=== PATIENT | male | born 1990 | race Caucasian/White ===

== ENCOUNTER 2018-08-06 18:57 | Emergency (ER) | payer SELFPAY ==
[2018-08-06 19:17] VITALS: BP 122/68; PULSE 86; RESP 16; TEMP 36.8; O2SAT 99
--- NOTE | 2018-08-06 19:53 | ED_ITS ---
HPI - Skin/Abscess/Foreign Bdy <Farrah Agrawal PA-C - Last Filed: 08/06/18 22:07> General Chief complaint: Skin/Abscess/Foreign Body Stated complaint: large lump on to the right of his right eye Time Seen by Provider: 08/06/18 19:30 Source: patient Mode of arrival: ambulatory Limitations: no limitations History of Present Illness HPI narrative: This healthy 27-year-old male states he has had a pimple like lesion that was firm near his right eyebrow for 6 or 7 months, however it has been enlarging gradually and more red and tender over the last week. It feels more ?squishy? to him. He denies vision change. He has not had fever at home. He states actually he came in this evening at the insistence of his girlfriend, otherwise would have probably continue to watch it at home. He denies any other new symptoms or complaints, no recent illness. Related Data Allergies Allergy/AdvReac Type Severity Reaction Status Date / Time Penicillins Allergy Nausea Verified 08/06/18 19:17 Review of Systems <Farrah Agrawal PA-C - Last Filed: 08/06/18 22:07> Review of Systems ROS Unobtainable: All systems reviewed & are unremarkable except as noted in HPI and below PFSH <Farrah Agrawal PA-C - Last Filed: 08/06/18 22:07> Medical History No chronic problems (Chronic) No pertinent family history (Chronic) Surgical History No pertinent past surgical history (Chronic) Social History Smoking Status: Current every day smoker Social History Smoking Status: Current every day smoker Comment: Denies ETOH or street drugs Exam <MIRIAN Michel Last Filed: 08/06/18 22:07> Narrative Exam Narrative: GENERAL APPEARANCE: Patient sitting comfortably, in no distress. HEENT: PERRL, EOMI, normal oropharynx LUNGS: Clear to auscultation bilaterally. HEART: Rate and rhythm regular without murmur, normal S1 and S2, no S3 or S4. DERMATOLOGIC: The at the right lateral eyebrow border there is an erythematous somewhat fluctuant at all about 1 cm in diameter with a little bit of erythema under the brow. This does not extend to the eyelid or inferiorly. Mildly tender to touch. Skin is not warm Initial Vital Signs Initial Vital Signs: Vital Signs Temperature 98.3 F 08/06/18 19:17 Pulse Rate 86 08/06/18 19:17 Respiratory Rate 16 08/06/18 19:17 Blood Pressure 122/68 08/06/18 19:17 Pulse Oximetry 99 08/06/18 19:17 <Noe Tellez DO - Last Filed: 08/06/18 22:20> Initial Vital Signs Initial Vital Signs: Vital Signs Temperature 98.3 F 08/06/18 19:17 Pulse Rate 86 08/06/18 19:17 Respiratory Rate 16 08/06/18 19:17 Blood Pressure 122/68 08/06/18 19:17 Pulse Oximetry 99 08/06/18 19:17 Procedures <Farrah Agrawal PA-C - Last Filed: 08/06/18 22:07> [facility] [place] Procedure Name of Procedure: I & D Side (if applicable): right Additional Comments: Right eye brow lesion was cleaned with alcohol, anesthetized with 0.5 cc 2% lidocaine with epi, and a small incision was made. A mix of purulent and serous fluid drained, then underlying sebaceous material. Explored and it appeared that this was all removed. Bandage applied Course <Farrah Agrawal PA-C - Last Filed: 08/06/18 22:07> Vital Signs - 8 hr 08/06/18 19:17 08/06/18 20:36 Temperature 98.3 F 98.4 F Pulse Rate 86 87 Respiratory Rate 16 16 Blood Pressure 122/68 118/68 Pulse Oximetry 99 100 <DO Dagoberto Mcclelland Last Filed: 08/06/18 22:20> Vital Signs - 8 hr 08/06/18 19:17 08/06/18 20:36 Temperature 98.3 F 98.4 F Pulse Rate 86 87 Respiratory Rate 16 16 Blood Pressure 122/68 118/68 Pulse Oximetry 99 100 Discharge Plan Departure Patient Disposition: Home Clinical Impression: Sebaceous cyst of eyelid Qualifiers: Laterality: right Qualified Code(s): H02.823 - Cysts of right eye, unspecified eyelid Discharge Date/Time: 08/06/18 20:35 Interventions: ED Discharge Assessment Last Done: 08/06/18 20:36 Instructions: DI for Epidermal Cyst Activity Restrictions/Additional Instructions: You have a cyst near the eyebrow that looks like a sebaceous cyst (they can get infected and full of the white material that I showed you when we drained it). Please put a hot pack on this tonight when you go home, and several times tomorrow to help any remaining drainage come out. Cover the incision site with a Band-Aid if you are working. Please return if you have spreading redness, swelling, pain, or new symptoms such as fever. Otherwise, please call your PCP office on Wednesday and setup a follow-up in the next few days. As we talked a bout, these can return unless the whole cyst capsule is removed, and he may need to have this done if it is bothersome again. You can take [id number] ibuprofen as needed for pain. Referrals: Bonilla Robledo MD [Non-Staff] - <Noe Tellez DO - Last Filed: 08/06/18 22:20> Cosign ED Attending Rodneyature Attestation: I was available for consultation during this patient's emergency department encounter
[2018-08-06 20:36] VITALS: BP 118/68; PULSE 87; RESP 16; TEMP 36.9; O2SAT 100
== END 2018-08-06 20:35 | disposition home or self-care (01) ==
PROVIDERS: Emergency Provider Internal Medicine
DX: H02.823 Cysts of right eye, unspecified eyelid (principal)
CPT/HCPCS: 10060; 99282

== ENCOUNTER 2021-03-31 17:03 | Emergency (ER) | payer OTHER, MEDICAID, SELFPAY ==
[2021-03-31 17:08] VITALS: BP 134/79; PULSE 88; RESP 16; TEMP 36.7; O2SAT 98
--- NOTE | 2021-03-31 17:20 | ED_ITS ---
HPI - Wound/Laceration <César Cabrera PA-C - Last Filed: 03/31/21 18:16> General Chief Complaint: Wound/Laceration Stated Complaint: LEFT HAND LACERATION Time Seen by Provider: 03/31/21 17:18 Source: patient Mode of arrival: Ambulatory History of Present Illness HPI narrative: 30-year-old male with no reported past medical history presents to the ED status post a left hand injury sustained just prior to arrival. P atient states that the injury came from a cut from a sharp piece of metal. Patient's tetanus status unknown. Patient denies numbness, tingling, weakness. Patient endorses good range of motion. Related Data Allergies Allergy/AdvReac Type Severity Reaction Status Date / Time Penicillins Allergy Nausea Verified 08/06/18 19:17 Review of Systems <César Cabrera PA-C - Last Filed: 03/31/21 18:16> Constitutional Constitutional: Denies chills, Denies fatigue, Denies fever(s), Denies frequent falls, Denies lethargy and Denies weakness Eyes Eyes: Denies change in vision, Denies eye discharge, Denies irritation and Denies loss of vision ENT Ears, Nose, Mouth, and Throat: Denies change in voice, Denies dizziness, Denies neck pain, Denies sore throat and Denies throat swelling Cardiovascular Cardiovascular: Denies chest pain, Denies irregular heart rhythm, Denies lightheadedness, Denies palpitations, Denies dyspnea, Denies dyspnea on exertion and Denies orthopnea Respiratory Respiratory: Denies cough, Denies dyspnea, Denies dyspnea on exertion and Denies wheezing Gastrointestinal Gastrointestinal: Denies abdominal pain, Denies change in bowel habits, Denies diarrhea, Denies nausea and Denies vomiting Musculoskeletal Musculoskeletal: Denies neck pain and Denies numbness Integumentary/Breasts Skin/Breast: Denies pruritus, Denies erythema, Denies rash and Denies wounds Comments: Laceration to left palm. Neurologic Neurologic: Denies behavioral changes, Denies confusion, Denies dizziness, Denies frequent falls, Denies loss of vision, Denies numbness and Denies weakness Psychiatric Psychiatric: Denies anxiety, Denies behavioral changes, Denies confusion, Denies depression, Denies homicidal ideation and Denies suicidal ideation Endocrine Endocrine: Denies fatigue, Denies flushing and Denies palpitations Hematologic/Lymphatic Hematologic/Lymphatic: Denies easy bruising Allergic/Immunologic Allergic/Immunologic: Denies urticaria, Denies throat swelling and Denies wheezing Patient History <César Cabrera PA-C - Last Filed: 03/31/21 18:16> Medical History No chronic problems No pertinent family history Surgical History No pertinent past surgical history Social History Smoking Status: Current every day smoker Smoking Status: Current every day smoker alcohol intake frequency: 0-2 drinks per day Substance Use Type: does not use Exam <César Cabrera PA-C - Last Filed: 03/31/21 18:16> Initial Vital Signs Initial Vital Signs: Vital Signs Temperature 98.0 F 03/31/21 17:08 Pulse Rate 88 03/31/21 17:08 Respiratory Rate 16 03/31/21 17:08 Blood Pressure 134/79 03/31/21 17:08 Pulse Oximetry 98 03/31/21 17:08 Const General: cooperative HENMT Head: normocephalic and atraumatic Ears: external ears normal and TM's normal bilaterally Nose: external nose normal and No nasal discharge Face and sinus: sinuses nontender, face symmetric, no sinus tenderness and No dry mucous membranes Mouth: oral mucosae normal and moist mucous membranes Teeth and gingiva: dentition normal Throat: tonsils normal and uvula midline Eyes General: appearance normal, both eyes and all related structures Eyelids: eyelids normal Conjunctivae: conjunctivae normal Sclera: sclerae normal Pupils: PERRL EOM: EOM intact bilaterally Neck Neck: normal visual inspection, trachea midline, No lymphadenopathy, No midline deformity and No JVD Lymphatic: No lymphedema Chest Chest: normal inspection of the chest Resp Effort & Inspection: normal respiratory effort, able to speak in complete sentences, no respiratory distress and no use of accessory muscles Auscultation: clear to auscultation bilaterally, no rales, no rhonchi and no wheezes Cardio Rate: regular rate Rhythm: regular rhythm Heart Sounds: no click, no gallops, no murmurs and no rubs Pulses: normal peripheral pulses GI Inspection: non-distended Palpation: soft, no hepatosplenomegaly, No guarding, No pulsatile mass and No tender Auscultation: normal bowel sounds Back/Spine/Pelvis Back: No CVA tenderness Cervical Spine: cervical ROM normal and No pain with cervical ROM Thoracic/Lumbar Spine: thoracic and lumbar spine normal to inspection Skin General: No jaundice and No petechiae Other: 2 cm Linear Laceration to left palm the base of the 5th digit. Neurovascularly intact. Strength and sensation intact. Bleeding controlled with pressure. No deeper structures visible on exam. Neuro General: patient alert, patient oriented x3, gait normal and no focal motor deficits Speech: speech normal Extrem General: full ROM, no clubbing, cyanosis or edema, no pedal edema and no calf tenderness Psych Appearance: well kempt Mental Status: mental status grossly normal Attitude: cooperative Thought Content: normal and suicidality Judgment: judgment good <Noe Tellez DO - Last Filed: 03/31/21 18:25> Initial Vital Signs Initial Vital Signs: Vital Signs Temperature 98.0 F 03/31/21 17:08 Pulse Rate 88 03/31/21 17:08 Respiratory Rate 16 03/31/21 17:08 Blood Pressure 134/79 03/31/21 17:08 Pulse Oximetry 98 03/31/21 17:08 Procedures <César Cabrera PA-C - Last Filed: 03/31/21 18:16> Laceration Repair Laceration 1: Site: hand Side (If applicable): left Size (cm): 2 Depth: simple, single layer Local Anesthetic: lidocaine 1% Amount of anesthesia used (mL): 1.5 Skin layer closed with: nylon Size (cm): 4-0 Number of sutures: 5 Technique: simple, interrupted Course <César Cabrera PA-C - Last Filed: 03/31/21 18:16> Orders Ordered: Discontinued Medications Diphtheria/Tetanus/Acell Pertussis (Diph,Pertuss(Acell),Tet Vac/Pf 0.5 Ml Syringe) 0.5 ml IM .ONCE ONE Stop: 03/31/21 17:29 Last Admin: 03/31/21 17:42 Dose: Not Given Documented by: ROSS Diphtheria/Tetanus/Acell Pertussis (Tet,Diph,Pertuss(Acell),Vac/Pf 0.5 Ml Syringe) 0.5 ml IM .ONCE ONE Stop: 03/31/21 17:43 Last Admin: 03/31/21 17:50 Dose: 0.5 ml Documented by: DARVIN Lidocaine HCl (Lidocaine 1% (Pf)) 2 ml INJ NOW ONE Stop: 03/31/21 17:26 Last Admin: 03/31/21 17:50 Dose: 2 ml Documented by: DARVIN Vital Signs Vital signs: Vital Signs - 8 hr 03/31/21 17:08 Temperature 98.0 F Pulse Rate 88 Respiratory Rate 16 Blood Pressure 134/79 Pulse Oximetry 98 <Noe Tellez DO - Last Filed: 03/31/21 18:25> Orders Ordered: Discontinued Medications Diphtheria/Tetanus/Acell Pertussis (Diph,Pertuss(Acell),Tet Vac/Pf 0.5 Ml Syringe) 0.5 ml IM .ONCE ONE Stop: 03/31/21 17:29 Last Admin: 03/31/21 17:42 Dose: Not Given Documented by: ROSS Diphtheria/Tetanus/Acell Pertussis (Tet,Diph,Pertuss(Acell),Vac/Pf 0.5 Ml Syringe) 0.5 ml IM .ONCE ONE Stop: 03/31/21 17:43 Last Admin: 03/31/21 17:50 Dose: 0.5 ml Documented by: DARVIN Lidocaine HCl (Lidocaine 1% (Pf)) 2 ml INJ NOW ONE Stop: 03/31/21 17:26 Last Admin: 03/31/21 17:50 Dose: 2 ml Documented by: DARVIN Vital Signs Vital signs: Vital Signs - 8 hr 03/31/21 17:08 Temperature 98.0 F Pulse Rate 88 Respiratory Rate 16 Blood Pressure 134/79 Pulse Oximetry 98 MDM - Wound/Laceration <César Cabrera PA-C - Last Filed: 03/31/21 18:16> [facility] Narrative Medical decision making narrative: 30-year-old male with no reported past medical history presents to the ED status post a left hand injury sustained just prior to arrival. Physical exam reassuring. Good cap refill. Strength and sensation intact. Will repair laceration, update tetanus, discharge home with infection precautions. Discharge Plan Departure Patient Disposition: Home Clinical Impression: Laceration Instructions: DI for Laceration Repair Activity Restrictions/Additional Instructions: You were evaluated in the ED today for a left hand injury. Your physical exam was reassuring for no injury to deeper structures your hand. Your laceration was sutured. Your tetanus was updated today. You will need to have the sutures removed either at the ED, urgent care clinic, or PCP office in 7-10 days. Please keep the area dry for the 1st 24 hours. You may wash the wound with soap and water and keep it dry after that. Please return to the ED if you notice any signs of infection including redness, swelling, pain, discharge, warmth at the site of the injury. Stand Alone Forms: Work Release Note <Noe Tellez, DO - Last Filed: 03/31/21 18:25> Cosign ED Attending Cosignature Attestation: Dr Tellez Co-Sign Statement: I was available for consultation during this patient's emergency department visit. This chart is signed by myself for administrative purposes only. I did not have direct contact with this patient during this visit. They were seen independently by the APC.
[2021-03-31] MEDS: TET,DIPH,PERTUSS(ACELL),VAC/PF 0.5 ML SYRINGE IM (17:50)
[2021-03-31] MEDS: LIDOCAINE 1% (PF) 2 ML INJ (17:50)
== END 2021-03-31 18:22 | disposition home or self-care (01) ==
PROVIDERS: Emergency Provider Student in an Organized Health Care Education/Training Program
DX: S61.412A Laceration without foreign body of left hand, initial encounter (principal); W26.8XXA Contact with other sharp object(s), not elsewhere classified, initial encounter; Z23 Encounter for immunization
CPT/HCPCS: 12001; 90471; 99283; 90715

== ENCOUNTER 2021-09-29 15:56 | Emergency (ER) | payer OTHER, SELFPAY ==
[2021-09-29 16:02] VITALS: BP 154/84; PULSE 97; RESP 18; TEMP 37.1; O2SAT 98
--- NOTE | 2021-09-29 16:04 | DI.RAD.S_ITS ---
PROCEDURE: XR WRIST LT MIN 3V INDICATIONS: struck with hammer TECHNIQUE: 4 views of the wrist were acquired. COMPARISON: None. FINDINGS: Bones: No fractures or dislocations. No suspicious bony lesions. Scaphoid view: Normal Soft tissues: No suspicious soft tissue calcifications. IMPRESSION: Normal left wrist and scaphoid bone. Dictated by: Adan Anderson M.D. on 09/29/2021 at 16:44 Approved by: Adan Anderson M.D. on 09/29/2021 at 16:45
--- NOTE | 2021-09-29 16:04 | DI.RAD.S_ITS ---
PROCEDURE: XR HAND LT MIN 3V INDICATIONS: struck with hammer TECHNIQUE: 3 views of the hand(s) acquired. COMPARISON: None. FINDINGS: Bones: No fractures or dislocations. Carpal bones are normally aligned. No suspicious bony lesions. Soft tissues: No suspicious soft tissue calcifications. IMPRESSION: Normal left hand Dictated by: Adan Anderson M.D. on 09/29/2021 at 16:43 Approved by: Adan Anderson M.D. on 09/29/2021 at 16:44
--- NOTE | 2021-09-29 18:14 | ED_ITS ---
HPI - Extremity Injury (Upper) General Chief Complaint: Extremity Injury, Upper Stated Complaint: Smashed Left Thumb w/ Hammer Time Seen by Provider: 09/29/21 18:13 Source: patient Mode of arrival: Ambulatory Related Data Allergies Allergy/AdvReac Type Severity Reaction Status Date / Time Penicillins Allergy Nausea Verified 08/06/18 19:17 Patient History Medical History No chronic problems No pertinent family history Surgical History No pertinent past surgical history Social History Smoking Status: Current every day smoker Smoking Status: Current every day smoker alcohol intake frequency: 0-2 drinks per day Substance Use Type: does not use Exam Initial Vital Signs Initial Vital Signs: Vital Signs Temperature 98.7 F 09/29/21 16:02 Pulse Rate 97 H 09/29/21 16:02 Respiratory Rate 18 09/29/21 16:02 Blood Pressure 154/84 H 09/29/21 16:02 Pulse Oximetry 98 09/29/21 16:02 Course Orders Ordered: ED Orders 09/29/21 16:04 XR hand LT min 3V Stat XR wrist LT min 3V Stat Discontinued Medications Ketorolac Tromethamine (Ketorolac 30 Mg/Ml Vial) 15 mg IM NOW ONE Stop: 09/29/21 18:34 Last Admin: 09/29/21 18:54 Dose: Not Given Documented by: SUKUMAR Vital Signs Vital signs: Vital Signs - 8 hr 09/29/21 16:02 Temperature 98.7 F Pulse Rate 97 H Respiratory Rate 18 Blood Pressure 154/84 H Pulse Oximetry 98 MDM - Extremity Injury (Upper) Imaging Data Extremity x-ray #1: Radiologist's Impression: Duke Jimenez??30??M??1990 ? Allergy/Adv: Penicillins Close Wrist X-Ray (Signed) Adan Anderson - 09/29/21 Hand X-Ray (Signed) Adan Anderson - 09/29/21 Launch?[address] [address] XRay Report Signed Patient: Duke Jimenez MR#: [id number] : 1990 Acct:[id number] Age/Sex: 30 / M Date of Service: 09/29/21 Loc: ED Accession Number: [id number] ?? Procedure: XR hand LT min 3V Ordering Provider: Maria Isabel Cuevas D.O. PROCEDURE:? XR HAND LT MIN 3V ? INDICATIONS:? struck with hammer ? TECHNIQUE:? 3 views of the hand(s) acquired.? ? COMPARISON:? None. ? FINDINGS:? ? Bones:? No fractures or dislocations.? Carpal bones are normally aligned.? No suspicious bony lesions.? ? Soft tissues:? No suspicious soft tissue calcifications.? ? ? IMPRESSION:? Normal left hand ? ? Dictated by: Adan Anderson M.D. on 09/29/2021 at 16:43 ? ? Approved by: Adan Anderson M.D. on 09/29/2021 at 16:44 ? Extremity x-ray #2: Radiologist's Impression: Duke Jimenez??30??M??1990 ? Allergy/Adv: Penicillins Close Wrist X-Ray (Signed) Adan Anderson - 09/29/21 Hand X-Ray (Signed) Adan Anderson - 09/29/21 [place] [address] XRay Report Signed Patient: Duke Jimenez MR#: [id number] : 1990 Acct:[id number] Age/Sex: 30 / M Date of Service: 09/29/21 Loc: ED Accession Number: [id number] ?? Procedure: XR wrist LT min 3V Ordering Provider: Maria Isabel Cuevas D.O. PROCEDURE:? XR WRIST LT MIN 3V ? INDICATIONS: struck with hammer ? TECHNIQUE:? 4 views of the wrist were acquired.? ? COMPARISON:? None. ? FINDINGS:? ? Bones:? No fractures or dislocations.? No suspicious bony lesions.? ? Scaphoid view:? Normal ? Soft tissues:? No suspicious soft tissue calcifications.? ? IMPRESSION:? Normal left wrist and scaphoid bone. ? ? Dictated by: Adan Anderson M.D. on 09/29/2021 at 16:44 ? ? Approved by: Adan Anderson M.D. on 09/29/2021 at 16:45 ? Discharge Plan Departure Patient Disposition: Home Clinical Impression: Carpal tunnel syndrome of left wrist Crush injury, wrist Qualifiers: Encounter type: initial encounter Laterality: left Qualified Code(s): S67.32XA - Crushing injury of left wrist, initial encounter Instructions: Wrist Sprain, DI for Wrist Pain Activity Restrictions/Additional Instructions: *You have been diagnosed with a contusion and injury to your left wrist and hand, no bony abnormalities were visible on x-ray including fracture. Please take tomorrow off of work to rest wear a wrist splint for the next 1-2 weeks until it starts to improve. Take Tylenol and ibuprofen every 6 hours as needed for your pain, ice it if it is bothersome, keep it elevated while your home. This should start to get better in the next two weeks, if you are not feeling any better, please visit your primary care provider or return to the emergency department for another evaluation [id number]. You have symptomatic carpal tunnel on exam, please follow-up with [facility] for evaluation if this is not improve. Please call and make an appointment for follow-up. *What to do: *Please continue to take your regular medications as directed. [ ] New medication prescriptions sent to your pharmacy: [ ] [ ] New medication written as a paper prescription [x ] No new medications given *Please follow up with your primary care provider in 2-3 days, call for an appointment. Let them know you were seen in the Emergency Department and that we asked that you be seen for follow-up. We will electronically transmit a record of today's note if your PCP is in our system *If you do not have a primary care provider please contact [phone] to establish care with one of the [facility] primary care providers. *Return to Emergency Department if you should have any new, worsening or concerning symptoms, such as [fever greater than 101F, chills, worsening pain, persistent vomiting or other bothersome symptoms] Referrals: [facility] [Provider Group] - 3-5 days Miscellaneous,[facility] [Primary Care Provider] -
--- NOTE | 2021-09-29 18:45 | ED.UPPEXIN ---
HPI - Extremity Injury (Upper) <OLI Golden - Last Filed: 09/29/21 18:56> General Chief Complaint: Extremity Injury, Upper Stated Complaint: Smashed Left Thumb w/ Hammer Time Seen by Provider: 09/29/21 18:13 Source: patient Mode of arrival: Ambulatory History of Present Illness HPI narrative: This is a 30-year-old male who presents to the emergency department for work related injury where he smashed his left thumb with a hammer a few hours ago and has left palm pain, left lateral wrist pain. Patient endorses numbness from the DIP joint in his left middle finger to the end of his finger tip. He also endorses some numbness and tingling in his 3rd through 5th digits which is intermittent. Patient denies any significant range of motion deficit, he states flexion is mostly limited, extension without deficit. He has full range of motion of his fingers, denies any pain over his metacarpals, denies any open wound. Handedness: right Related Data Allergies Allergy/AdvReac Type Severity Reaction Status Date / Time Penicillins Allergy Nausea Verified 08/06/18 19:17 Review of Systems <OLI Golden - Last Filed: 09/29/21 18:56> Review of Systems Narrative: General: denies fever, chills, malaise, sweats, fatigue Head/Neck: denies headache, neck pain, dizziness Eyes: denies visual changes, eye pain Cardio: denies chest pain, palpitations, edema Respiratory: denies dyspnea, cough, orthopnea MSK: Endorses left wrist pain, left palmar near his thumb MCP pain, denies any muscle weakness Skin: denies rash, itching, skin lesions or other Neuro: denies numbness, tingling Patient History <OLI Golden - Last Filed: 09/29/21 18:56> Medical History No chronic problems No pertinent family history Surgical History No pertinent past surgical history Social History Smoking Status: Current every day smoker Smoking Status: Current every day smoker alcohol intake frequency: 0-2 drinks per day Substance Use Type: does not use Exam <OLI Golden Last Filed: 09/29/21 18:56> Narrative Exam Narrative: Independently reviewed vitals signs and nursing notes. General: cooperative, comfortable, in no acute distress, well groomed Head: atraumatic, symmetrical facial expressions Neck: supple Eyes: equal round and reactive, EOMI, conjunctiva normal Nose: nares patent, no rhinorrhea Mouth/Throat: moist mucus membranes Cardiovascular: regular rate and rhythm, no peripheral edema, warm extremities MSK: moves all extremities, neurovascularly intact, normal tone, flexion range of motion of his left wrist is reduced by approximately 30%, no deficit with extension, patient has numbness and tingling in his thumb and 3rd digit, endorses some lateral forearm pain. There is no open wound, no tenderness over scaphoid, no tenderness over distal radius or distal ulna. Skin: brisk capillary refill, no rash, no erythema Neuro: normal speech and cognition, A&O x3 Psych: mental status is grossly normal, congruent mood, normal affect, pleasant and cooperative Initial Vital Signs Initial Vital Signs: Vital Signs Temperature 98.7 F 09/29/21 16:02 Pulse Rate 97 H 09/29/21 16:02 Respiratory Rate 18 09/29/21 16:02 Blood Pressure 154/84 H 09/29/21 16:02 Pulse Oximetry 98 09/29/21 16:02 <DO Dagoberto Washington Last Filed: 09/30/21 01:02> Initial Vital Signs Initial Vital Signs: Vital Signs Temperature 98.7 F 09/29/21 16:02 Pulse Rate 97 H 09/29/21 16:02 Respiratory Rate 18 09/29/21 16:02 Blood Pressure 154/84 H 09/29/21 16:02 Pulse Oximetry 98 09/29/21 16:02 <DO Dagoberto Washington Last Filed: 09/30/21 01:02> Orthopedic Splinting/Casting Injury #1: Side: left Upper Extremity Injury Location: hand Upper Extremity Immobilizer: thumb spica Post splinting neuro exam: intact Post splinting vascular exam: intact Placed by: Nursing Course <OLI Golden Filed: 09/29/21 18:56> Orders Ordered: ED Orders 09/29/21 16:04 XR hand LT min 3V Stat XR wrist LT min 3V Stat Discontinued Medications Ketorolac Tromethamine (Ketorolac 30 Mg/Ml Vial) 15 mg IM NOW ONE Stop: 09/29/21 18:34 Last Admin: 09/29/21 18:54 Dose: Not Given Documented by: SUKUMAR Vital Signs Vital signs: Vital Signs - 8 hr 09/29/21 16:02 Temperature 98.7 F Pulse Rate 97 H Respiratory Rate 18 Blood Pressure 154/84 H Pulse Oximetry 98 <Jesús Meadows DO - Last Filed: 09/30/21 01:02> Orders Ordered: ED Orders 09/29/21 16:04 XR hand LT min 3V Stat XR wrist LT min 3V Stat Discontinued Medications Ketorolac Tromethamine (Ketorolac 30 Mg/Ml Vial) 15 mg IM NOW ONE Stop: 09/29/21 18:34 Last Admin: 09/29/21 18:54 Dose: Not Given Documented by: SUKUMAR Vital Signs Vital signs: Vital Signs - 8 hr 09/29/21 16:02 Temperature 98.7 F Pulse Rate 97 H Respiratory Rate 18 Blood Pressure 154/84 H Pulse Oximetry 98 MDM - Extremity Injury (Upper) <Diana Almaguer [facility] - Last Filed: 09/29/21 18:56> Imaging Data Extremity x-ray #1: Radiologist's Impression: PROCEDURE:? XR HAND LT MIN 3V ? INDICATIONS:? struck with hammer ? TECHNIQUE:? 3 views of the hand(s) acquired.? ? COMPARISON:? None. ? FINDINGS:? ? Bones:? No fractures or dislocations.? Carpal bones are normally aligned.? No suspicious bony lesions.? ? Soft tissues:? No suspicious soft tissue calcifications.? ? ? IMPRESSION:? Normal left hand ? ? Dictated by: Adan Anderson M.D. on 09/29/2021 at 16:43 ? ? Approved by: Adan Anderson M.D. on 09/29/2021 at 16:44 ? Extremity x-ray #2: Radiologist's Impression: PROCEDURE:? XR WRIST LT MIN 3V ? INDICATIONS: struck with hammer ? TECHNIQUE:? 4 views of the wrist were acquired.? ? COMPARISON:? None. ? FINDINGS:? ? Bones:? No fractures or dislocations.? No suspicious bony lesions.? ? Scaphoid view:? Normal ? Soft tissues:? No suspicious soft tissue calcifications.? ? IMPRESSION:? Normal left wrist and scaphoid bone. ? ? Dictated by: Adan Anderson M.D. on 09/29/2021 at 16:44 ? ? Approved by: Adan Anderson M.D. on 09/29/2021 at 16:45 ? MDM Narrative Medical decision making narrative: To the emergency department for left hand pain after he hit his left hand near his MCP joint in his thumb with a hammer five days ago. Patient expresses pain on the palmar aspect of his hands, he has pillar pain on exam, he also endorses pain which has spread up the lateral aspect of his wrist and endorses numbness and tingling in his thumb and 3rd digit. Patient is right-handed, he is neurovascularly intact although he has intermittent numbness and tingling in his 1st and 3rd digits. Patient states that his symptoms have not improved that much over the last few days, he has taken ibuprofen a couple of times. He has flexion limitation of his left wrist by approximately 30%, no limitation with extension, no tenderness over metacarpals, no tenderness over distal radius or ulna, no tenderness over scaphoid. Recommend patient follow-up with orthopedics for his carpal tunnel symptoms if ongoing, ice, elevate, ibuprofen and Tylenol for his symptoms. He was fitted in a Velcro thumb spica wrist splint, encouraged to sleep in it and take tomorrow off of work. [id number]. Patient is appropriate and amenable to discharge home. Vital signs are stable on repeat examination is unremarkable. Patient has been informed of results. Patient has been given strict return to ER precautions for any new or worsening symptoms. Patient understands to follow up closely with outpatient providers as instructed. Patient understands plan and agrees to discharge home. All questions and concerns answered at this time. Discharge Plan Departure Patient Disposition: Home Clinical Impression: Carpal tunnel syndrome of left wrist Crush injury, wrist Qualifiers: Encounter type: initial encounter Laterality: left Qualified Code(s): S67.32XA - Crushing injury of left wrist, initial encounter Instructions: Wrist Sprain, DI for Wrist Pain Activity Restrictions/Additional Instructions: *You have been diagnosed with a contusion and injury to your left wrist and hand, no bony abnormalities were visible on x-ray including fracture. Please take tomorrow off of work to rest wear a wrist splint for the next 1-2 weeks until it starts to improve. Take Tylenol and ibuprofen every 6 hours as needed for your pain, ice it if it is bothersome, keep it elevated while your home. This should start to get better in the next two weeks, if you are not feeling any better, please visit your primary care provider or return to the emergency department for another evaluation [id number]. You have symptomatic carpal tunnel on exam, please follow-up with [facility] for evaluation if this is not improve. Please call and make an appointment for follow-up. *What to do: *Please continue to take your regular medications as directed. [ ] New medication prescriptions sent to your pharmacy: [ ] [ ] New medication written as a paper prescription [x ] No new medications given *Please follow up with your primary care provider in 2-3 days, call for an appointment. Let them know you were seen in the Emergency Department and that we asked that you be seen for follow-up. We will electronically transmit a record of today's note if your PCP is in our system *If you do not have a primary care provider please contact [phone] to establish care with one of the [facility] primary care providers. *Return to Emergency Department if you should have any new, worsening or concerning symptoms, such as [fever greater than 101F, chills, worsening pain, persistent vomiting or other bothersome symptoms] Referrals: [facility] [Provider Group] - 3-5 days Miscellaneous,[facility] [Primary Care Provider] - <Jesús Meadows DO - Last Filed: 09/30/21 01:02> Cosign ED Attending Silva Attestation: I was immediately available in the department for consultation. This documentation has been reviewed and I agree with assessment and plan. Supervised by Jesús Meadows DO
== END 2021-09-29 18:55 | disposition home or self-care (01) ==
PROVIDERS: Emergency Provider Nurse Practitioner Critical Care Medicine
DX: S67.32XA Crushing injury of left wrist, initial encounter (principal); X58.XXXA Exposure to other specified factors, initial encounter; G56.02 Carpal tunnel syndrome, left upper limb; Y99.0 Civilian activity done for income or pay
CPT/HCPCS: 73110; 73130; 99282; 99283